=== PATIENT | female | born 1945 | race Caucasian/White ===

== ENCOUNTER 2016-12-29 16:19 | Emergency (ER) | payer OTHER ==
--- NOTE | 2016-12-29 16:23 | PDOC ---
History of Present Illness <Sujit Philippe - Last Filed: 12/29/16 17:41> - General History Source: Patient Exam Limitations: No Limitations - History of Present Illness Initial Comments: 12/29/16 18:03 71 F with h/o HTN presents to ER with L shoulder pain. Pt has had 4 prior L shoulder dislocations in the past and states that this feels similar. She was forcibly opening a door with her left hand when she felt it pop out. Pt denies falling, denies any other injury. Pt denies numbness or tingling in her hand. Pt states that the last time she dislocated her shoulder, it was able to be massaged back into place without any sedation. <Carter Bobo - Last Filed: 12/29/16 18:09> - General Chief Complaint: Pain Stated Complaint: LEFT SHOULDER DISLOCATION Time Seen by Provider: 12/29/16 16:22 Past History <Sujit Philippe - Last Filed: 12/29/16 17:41> <Carter Bobo - Last Filed: 12/29/16 18:09> - Past Medical History Allergies/Adverse Reactions: Allergies Allergy/AdvReac Type Severity Reaction Status Date / Time No Known Allergies Allergy Verified 12/29/16 16:26 Home Medications: Ambulatory Orders Cholecalciferol (Vitamin D3) [Vitamin D3 -] 1,000 unit PO DAILY 12/29/16 Hydrochlorothiazide [Hctz -] 12.5 mg PO DAILY 12/29/16 Pravastatin Sodium [Pravachol (Nf)] 20 mg PO DAILY 12/29/16 Quinapril HCl [Accupril] 40 mg PO DAILY 12/29/16 *Physical Exam - Vital Signs Last Vital Signs Temp Pulse Resp BP Pulse Ox 98.7 F 101 H 15 157/103 98 12/29/16 16:21 12/29/16 16:21 12/29/16 16:21 12/29/16 16:21 12/29/16 16:21 <Sujit Philippe - Last Filed: 12/29/16 17:41> - Physical Exam Comments: 12/29/16 18:05 GENERAL: Awake, alert, and fully oriented, in no acute distress HEAD: No signs of trauma EYES: PERRLA, EOMI, sclera anicteric, conjunctiva clear ENT: Auricles normal inspection, hearing grossly normal, nares patent, oropharynx clear without exudates. Moist mucosa NECK: Nontender, no stepoffs, Normal ROM, supple, no lymphadenopathy, JVD, or masses LUNGS: Breath sounds equal, clear to auscultation bilaterally. No wheezes, and no crackles HEART: Regular rate and rhythm, normal S1 and S2, no murmurs, rubs or gallops ABDOMEN: Soft, nontender, normoactive bowel sounds. No guarding, no rebound. No masses EXTREMITIES: +L shoulder flattening, no numbness over deltoid, sensation intact to light touch throughout extremity, distal pulses intact NEUROLOGICAL: Cranial nerves II through XII intact. 5/5 strength and sensation in all extremities, Normal speech, normal gait SKIN: Warm, Dry, normal turgor, no rashes or lesions noted. <Carter Bobo - Last Filed: 12/29/16 18:09> Procedures - Consent Consent obtained: Verbal, From Patient - Joint Reduction Left Joint Reduction Site: left: Anterior Dislocation Pre-Procedure NV Exam: normal Conscious Sedation: No (Patient didn't need one before and denies need for sedation) Reduction Attempts: 2 Post-Procedure NV Exam: normal Post Joint Reduction Film: joint reduced Splint: Yes <Carter Bobo - Last Filed: 12/29/16 18:09> ED Treatment Course - RADIOLOGY Radiology Studies Ordered: Category Date Time Status SHOULDER-LEFT [RAD] Stat Radiology 12/29/16 17:09 Completed <Sujit Philippe - Last Filed: 12/29/16 17:41> Medical Decision Making - Medical Decision Making 12/29/16 18:05 71F present to the ED with left shoulder pain.Xray confirms anterior dislocation. Shoulder reduced using scapular manipulation, massage of humeral head, and minimal downward traction Pt remains neurovascularly intact, placed in sling. Stable for DC home with ortho f/u. Patient immediately felt better. Confirmatory xray. 12/29/16 18:07 <Carter Bobo - Last Filed: 12/29/16 18:09> *DC/Admit/Observation/Transfer <Sujit Philippe - Last Filed: 12/29/16 17:41> <Carter Bobo - Last Filed: 12/29/16 18:09> Diagnosis at time of Disposition: Shoulder dislocation, recurrent - Discharge Dispostion Disposition: HOME Condition at time of disposition: Good - Referrals Referrals: Sukumar Zuleta MD [Staff Physician] - Kane Holly MD [Primary Care Provider] - - Patient Instructions Printed Discharge Instructions: Smoking Cessation for Older Adults: It's Not Too Late!, DI for Shoulder Dislocation Additional Instructions: Call the number provided to make an appointment with our orthopedics clinic. You must have your shoulder evaluated by an orthopedic surgeon, as you may require surgery to prevent further dislocations. If you experience worsening pain, numbness, weakness, or any other concerning symptoms, return to the ER immediately.
[2016-12-29 16:35] VITALS: BP 157/103; PULSE 101; TEMP 98.7; BMI 29.7
--- NOTE | 2016-12-29 17:03 | PDOC ---
Attending Attestation - Resident Resident Name: Carter Bobo - ED Attending Attestation I have performed the following: I have examined & evaluated the patient, The case was reviewed & discussed with the resident, I agree w/resident's findings & plan, Exceptions are as noted - HPI HPI: 12/29/16 17:01 71 F with h/o HTN presents to ER with L shoulder pain. Pt has had 4 prior L shoulder dislocations in the past and states that this feels similar. She was opening a car door with her left hand when she felt it pop out. Pt denies falling, denies any other injury. Pt denies numbness or tingling in her hand. She has an orthopedic surgeon with whom she is following and plans to have surgery on her shoulder. Pt states that the last time she dislocated her shoulder, it was able to be massaged back into place without any sedation. - Physicial Exam PE: 12/29/16 17:02 "GENERAL: Awake, alert, and fully oriented, in no acute distress HEAD: No signs of trauma EYES: PERRLA, EOMI, sclera anicteric, conjunctiva clear ENT: Auricles normal inspection, hearing grossly normal, nares patent, oropharynx clear without exudates. Moist mucosa NECK: Nontender, no stepoffs, Normal ROM, supple, no lymphadenopathy, JVD, or masses LUNGS: Breath sounds equal, clear to auscultation bilaterally. No wheezes, and no crackles HEART: Regular rate and rhythm, normal S1 and S2, no murmurs, rubs or gallops ABDOMEN: Soft, nontender, normoactive bowel sounds. No guarding, no rebound. No masses EXTREMITIES: +L shoulder flattening, no numbness over deltoid, sensation intact to light touch throughout extremity, distal pulses intact NEUROLOGICAL: Cranial nerves II through XII intact. 5/5 strength and sensation in all extremities, Normal speech, normal gait SKIN: Warm, Dry, normal turgor, no rashes or lesions noted. " - Medical Decision Making 12/29/16 17:03 71 F with L shoulder pain and deformity. Likely dislocation given h/o prior dislocations in same arm. Pt is neurovascularly intact. - XR - Shoulder reduction 12/29/16 17:38 XR with anterior dislocation of L shoulder Shoulder reduced using scapular manipulation, massage of humeral head, and minimal downward traction Post-reduction film obtained Pt remains neurovascularly intact, placed in sling. Stable for DC home with ortho f/u. Procedures - Joint Reduction Left Joint Reduction Site: left: Shoulder Pre-Procedure NV Exam: normal Conscious Sedation: No Procedure: Scapular Manipulation Post-Procedure NV Exam: normal Complications: No Post Joint Reduction Film: joint reduced Splint: No Immobilized: Yes
== END 2016-12-29 17:46 | disposition home or self-care (01) ==
LOC: FER 16:19
PROC: 0RSKXZZ Reposition Left Shoulder Joint, External Approach (ICD-10-PCS; principal; 2016-12-29)
DX: M24.412 Recurrent dislocation, left shoulder (principal)
CPT/HCPCS: 23650; 73030-TC-LT; 99282-25